=== PATIENT | male | born 1965 | race African-American/Black ===

== ENCOUNTER 2016-06-25 08:49 | Emergency (ER) | payer MEDICAID ==
[~2016-06-25] VITALS: Ht 162.6 cm; Wt 74.8 kg
[~2016-06-25 08:49] MED LIST: DIPHENHYDRAMINE25 M3 ORAL; IBUPROFEN600 MG ORAL; KENALOG 0.5% CR15 GM TOPIC
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
[2016-06-25] MEDS ORDERED: ROBAXIN-750750 MG PO (09:45)
[2016-06-25] MEDS ORDERED: IBUPROFEN600 MG ORAL (09:45)
[2016-06-25 09:53] VITALS: BP 135/87
--- NOTE | 2016-06-25 10:48 | Diagnostic Imaging Report ---
Indication: PAIN Technique: 3 views of the cervical spine Comparison: 04/10/2007 Findings: No prevertebral soft tissue swelling. There is slight reversal of the normal cervical lordosis, otherwise normal bony alignment. There is again demonstrated degenerative disc narrowing at C5-6 and progressive/new degenerative disc narrowing at C4-5. The remaining disc spaces are preserved. No acute fractures. No dislocations. Impression: Degenerative changes, as described. No acute bony trauma
== END 2016-06-25 09:56 | disposition home or self-care (01) ==
LOC: EMR 09:19
DX: S10.93XA Contusion of unspecified part of neck, initial encounter (principal); Y08.89XA Assault by other specified means, initial encounter; Y92.89 Other specified places as the place of occurrence of the external cause; M50.321 Other cervical disc degeneration at C4-C5 level
CPT/HCPCS: 72040; 99284